=== PATIENT | female | born 1970 | race Caucasian/White ===

== ENCOUNTER 2018-09-28 20:55 | Inpatient (IN) ==
[2018-09-28] MEDS ORDERED: VANCOMYCIN 1 GM/NS 1 GM/250 ML IVPB IV ONE (21:41)
--- NOTE | 2018-09-28 21:48 | PROVIDER DOCUMENTATION ---
This chart was entered by Mona Jenkins Scribe, acting as scribe for Jasper Ruiz MD. HPI-Rash/Wound/ReCheck - General Chief Complaint: Abscess Stated Complaint: ABSCESS, FEVER Time Seen by Provider: 09/28/18 21:15 Source: patient Allergies/Adverse Reactions: Allergies Allergy/AdvReac Type Severity Reaction Status Date / Time adhesive Allergy RASH Verified 12/17/17 18:50 codeine Allergy Unknown Verified 12/17/17 18:50 latex Allergy Unknown Verified 12/17/17 18:50 Home Medications: Home Medication List Medication Instructions Recorded Confirmed Last Taken Type Cyclobenzaprine [Flexeril] 10 mg PO DAILY PRN 02/08/14 01/04/16 02/04/14 22:30 H istory Estradiol 2 mg PO HS 02/08/14 01/04/16 01/03/16 History Hydrocodone/Acetaminophen [[place] 1 each PO 4XDAY PRN PRN 02/08/14 01/04/16 01/04/16 17:00 History 10-325 Tablet] Metformin HCl [Glucophage] 500 mg PO BID 02/08/14 01/04/16 01/04/16 History Pravastatin Sodium 40 mg PO HS 02/08/14 01/05/16 02/07/14 22:30 History Bupropion HCl [Wellbutrin Xl] 150 mg PO QHS 01/04/16 01/05/16 01/03/16 History Clonazepam [Klonopin] 1 mg PO BID PRN 01/04/16 01/04/16 Unknown History Ezetimibe [Zetia] 10 mg PO DAILY 01/04/16 01/04/16 01/04/16 History Fluoxetine HCl [Prozac] 40 mg PO QHS 01/04/16 01/05/16 01/03/16 History Insulin Lispro [Humalog] 100 unit SQ DIRECTED PRN 01/04/16 01/04/16 Unknown History Linaclotide [Linzess] 290 mcg PO DIRECTED PRN 01/04/16 01/04/16 Unknown History Methocarbamol [Robaxin-750] 750 mg PO DAILY PRN 01/04/16 01/04/16 01/03/16 History Pregabalin [Lyrica] 50 mg PO PRN PRN 01/04/16 01/05/16 Unknown History Sumatriptan Succinate [Imitrex] 100 mg PO DIRECTED PRN 01/04/16 01/04/16 Unknown History Trazodone [Desyrel] 25 mg PO QHS 01/04/16 01/04/16 01/03/16 History Duloxetine HCl [Cymbalta] 30 mg PO QHS 01/05/16 01/05/16 Unknown History Metoclopramide [Reglan] 10 mg PO Q6HR PRN 01/05/16 01/05/16 Unknown History Albuterol Sulfate [Albuterol 8.5 gm IH Q4-6H PRN PRN #1 05/07/17 Unknown Rx Sulfate Hfa] hfa.[id number].[email or web address] Azithromycin [Zithromax Z-Michael] 250 mg PO DIRECTED #1 pkg 05/07/17 Unknown Rx Guaifenesin/D-Methorphan Hb/PE 1 ea PO Q4-6H PRN PRN #20 tab 05/07/17 Unknown Rx [Deconex Dmx Tablet] - History of Present Illness-Dermatology Nature of Presenting Problem: 47yof presents to ED cc abscess under left arm since Thursday. Pt reports she was seen at yesterday and they tried to aspirate the abscess and gave her Augmentin and Clindamyacin but she feels it is worse today. Pt also reports urinary symptoms. Pt is nontoxic in appearance. Pt has hx of Satge 3 renal failure with only 1 kidney. Location: reports: upper extremity (under left arm) Quality: reports: painful, stinging Severity: reports: moderate Onset/Duration: reports: 3 days ago Timing: reports: still present, changing over time Context/Associated Symptoms: reports: abscess, rash Identifiable cause?: No Locality of Occurance: Home Similar Symptoms Previously?: Yes Recently seen or treated by another doctor?: Yes (saw yesterday) Review of Systems - Adult - REVIEW OF SYSTEMS - ADULT Constitutional: reports: see HPI, fever. denies: chills, fatique Eyes: reports: no symptoms reported Ears, Nose, Mouth & Throat: reports: no symptoms reported Cardiovascular: reports: no symptoms reported Respiratory: reports: no symptoms reported Gastrointestinal: reports: no symptoms reported Genitourinary: reports: see HPI, dysuria, hesitency, urinary retention Musculoskeletal: reports: no symptoms reported Integumentary: reports: see HPI, skin sores/ulcer (under left arm) Neurological: reports: no symptoms reported Psychiatric: reports: no symptoms reported Endocrine: reports: no symptoms reported Hematologic/Lymphatic: reports: no symptoms reported Allergic/Immunologic: reports: no symptoms reported All Other Systems: Reviewed and Negative Past History - Adult - PAST MEDICAL HISTORY-ADULT Review of Records: reports: Old Records Reviewed, Nursing Assessment Review, Medications Reviewed, Social history reviewed & non-contributory. Major Childhood Illnesses: reports: denies history Cardiovascular: reports: hyperlipidemia Respiratory: reports: other (plerisy) Gastrointestinal: reports: denies history Obstetrical/Gynecological: reports: denies history Genitourinary: reports: denies history Musculoskeletal: reports: denies history Neurological: reports: denies history Endocrine/Immune: reports: denies history Other Conditions: reports: denies history - PRIOR SURGERIES/PROCEDURES Surgical/Procedure History: reports: hysterectomy, cholecystectomy - IMMUNIZATION STATUS Childhood Immunizations: See Nurse Assessment Flu Vaccine: See Nurse Assessment - FAMILY HISTORY Family History: reviewed, not pertinent - SOCIAL HISTORY Smoking: denies Physical Exam-General - PHYSICAL EXAM-ADULT Initial Vital Signs Reviewed: Yes - CONSTITUTIONAL General Appearance: appears well, alert, no apparent distress. negative: anxious, combative - EYES Eyes: PERRL/EOMI, pink conjunctivae. negative: meningismus, pale conjunctivae, photophobia - RESPIRATORY Respiratory: chest non-tender, lungs clear, normal breath sounds, no pleuratic c hest pain, no respiratory distress, no accessory muscle use. negative: crackles, rales, rhonchi, stridor, wheezing - CARDIOVASCULAR Cardiovascular: normal peripheral pulses, regular rate, rhythm, no edema, no gallop, no JVD, no murmur. negative: bradycardia, tachycardia - LYMPHATIC Lymphatic: no adenopathy. negative: enlargement, striations, streaking - SKIN Integumentary: erythema, swelling, tenderness (3cm diameter abscess inderated red/tender axilla left arm no drainage or flutance), warm. negative: cyanosis, diaphoresis, jaundice - PSYCHIATRIC Psych/Mental Status: normal mood/affect, normal thought content, normal thought process, oriented x 3. negative: disoriented x 3, anxious, disheveled, depressed affect Progress - PLAN OF CARE/RESULTS Progress/Plan/Lab Results: Vital Signs - 8 hr 07/09/19 20:59 Temperature 98.7 F Pulse Rate 110 H Respiratory Rate 18 Blood Pressure 122/78 O2 Sat by Pulse Oximetry 98 Laboratory Results - last 24 hr 09/28/18 09/28/18 09/28/18 21:51 21:59 21:59 WBC 14.07 H RBC 4.27 Hgb 13.9 Hct 38.8 MCV 90.9 MCH 32.6 H MCHC 35.8 RDW Std Deviation 12.6 Plt Count 198 MPV 11.2 H Immature Gran % (Auto) 0.2 Neut % (Auto) 82.2 H Lymph % (Auto) 11.6 L Simpson % (Auto) 4.3 Eos % (Auto) 1.6 Baso % (Auto) 0.1 Immature Gran # (Auto) 0.03 Neut # (Auto) 11.56 H Lymph # (Auto) 1.63 Simpson # (Auto) 0.61 H Eos # (Auto) 0.22 Baso # (Auto) 0.02 Sodium 137 Potassium 3.7 Chloride 101 Carbon Dioxide 23 L Anion Gap 13 BUN 13 Creatinine 1.1 H Estimated GFR/1.73 m2 53 BUN/Creatinine Ratio 12 Glucose 194 H Calculated Osmolality 279 Calcium 8.9 Plasma Lactate Urine Source CLEAN CATCH Urine Color YELLOW Urine Clarity CLEAR Urine pH 6.5 Ur Specific Foster 1.015 Urine Protein 1+(30 mg/dL) A Urine Ketones TRACE Urine Blood NEGATIVE Urine Nitrite NEGATIVE Urine Bilirubin NEGATIVE Urine Urobilinogen NORMAL Urine Microscopic RBC <10 Urine WBC NEGATIVE Urine Microscopic WBC <10 Ur Epithelial Cells <10 Urine Bacteria NEGATIVE Urine Glucose 2+(250 mg/dL) A 09/28/18 21:59 WBC RBC Hgb Hct MCV MCH MCHC RDW Std Deviation Plt Count MPV Immature Gran % (Auto) Neut % (Auto) Lymph % (Auto) Simpson % (Auto) Eos % (Auto) Baso % (Auto) Immature Gran # (Auto) Neut # (Auto) Lymph # (Auto) Simpson # (Auto) Eos # (Auto) Baso # (Auto) Sodium Potassium Chloride Carbon Dioxide Anion Gap BUN Creatinine Estimated GFR/1.73 m2 BUN/Creatinine Ratio Glucose Calculated Osmolality Calcium Plasma Lactate 1.2 Urine Source Urine Color Urine Clarity Urine pH Ur Specific Foster Urine Protein Urine Ketones Urine Blood Urine Nitrite Urine Bilirubin Urine Urobilinogen Urine Microscopic RBC Urine WBC Urine Microscopic WBC Ur Epithelial Cells Urine Bacteria Urine Glucose Orders Category Date Time Status Saline Loc DIRECTED Care 09/28/18 21:41 Active BLOOD CULTURE [BLDCUL] Stat Lab 09/28/18 21:39 Ordered BMP [BASIC METABOLIC PANEL] [CHEM] Stat Lab 09/28/18 21:59 Completed CBC WITH ELECTRONIC DIFF [HEME] Stat Lab 09/28/18 21:59 Completed LACTATE, PLASMA [CHEM] Stat Lab 09/28/18 21:[address] W/POSS RFLX CULT [URINALYSIS] Stat Lab 09/28/18 21:51 Completed 0.9% Sodium Chloride Inj [Ns] 1,000 ml Med 09/28/18 21:49 Discontinued IV 999 mls/hr Vancomycin 1 gm/Ns Med 09/28/18 21:41 Discontinued 1 gm in 250 ml IV NOW Result Diagrams: 09/28/18 21:59 09/28/18 21:59 - CONSULTS/PCP/HOSPITALIST Notification #1 *Consult/PCP/Hospitalist*: Dr. Cruz, hospitalist Time Discussed: 22:50 Consult Disposition: Admit Departure - Departure Date of Disposition Decision: 09/28/18 Time of Disposition Decision: 22:47 DIAGNOSIS: Failure of outpatient treatment Cellulitis Qualifiers: Site of cellulitis: unspecified site Qualified Code(s): L03.90 - Cellulitis, unspecified Disposition: ADMITTED INPATIENT 09 Certified Medical Emergency: Emergent Condition: Stable Additional Freetext Instructions: ED Follow Up Instructions: You have been treated by a care provider in the Emergency Department. These instructions are being provided to you so you can have an understanding of how to care for yourself upon discharge. Upon discharge from the Emergency [facility], you are responsible for making arrangements for follow-up care by a physician of your choice. Take all prescribed medications as directed. Return to the Emergency Department immediately for any new or worsening symptoms. You may call the Physician Referral phone number at [phone] to obtain a list of Physicians who are taking new patients. Referrals and Follow-Ups: Bib Car DO [Primary Care Provider] - - Critical Care Note This patient required my direct & personal management of CC.: No Attestation - Physician/ MARIJA Attestation Patient care was provided by Advanced Practice Provider:: No The physician spent face to face time with patient:: Yes Advanced Practice Provider documentation review:: Supervising physician onsite and consulted in the evaluation and care of this patient. The physician did have a face to face encounter with the patient. This chart was documented by the indicated scribe, (Mona Jenkins Scribe) and accurately reflects the services I performed and decisions made by me, Jasper Ruiz MD, as attested by the provider's signature.
[2018-09-28] MEDS ORDERED: NS 1,000 ML IV ONE ×2 (21:49→22:51)
[2018-09-28 22:15] LABS: HEMOGLOBIN 13.9 g/dL (12.0-16.0); RBC 4.27 XMIL (4.2-5.4); WBC 14.07 X1000 (4.8-10.8)
[2018-09-28 22:16] LABS: BASO# 0.02 X1000 (0.0-0.2); BASO% 0.1 % (0.0-0.8); EOS# 0.22 X1000 (0.0-0.7); EOS% 1.6 % (0.0-10.0); HEMATOCRIT 38.8 % (37.0-47.0); IMM GRAN# 0.03 X1000 (0.0-0.04); IMM GRAN% 0.2 % (0.0-0.5); LYMPH# 1.63 X1000 (1.2-3.4); LYMPH% 11.6 % (20.5-51.1); MCH 32.6 PG (27-31); MCHC 35.8 g/dL (33-37); MCV 90.9 FL (81-99); MONO# 0.61 X1000 (0.11-0.59); MONO% 4.3 % (1.7-9.3); MPV 11.2 FL (7.4-10.4); NEUT# 11.56 X1000 (1.4-6.5); NEUT% 82.2 % (42.2-75.2); PLT 198 X1000 (130-400); RDW 12.6 % (11.5-14.5)
[2018-09-28 22:26] LABS: BILIRUBIN URINE NEGATIVE (NEGATIVE); BLOOD URINE NEGATIVE (NEGATIVE); KETONE URINE TRACE mg/dL (NEGATIVE); LEUKOCYTES URINE NEGATIVE (NEGATIVE); NITRITE URINE NEGATIVE (NEGATIVE); PH URINE 6.5; PROTEIN URINE 1+(30 mg/dL) mg/dL (NEGATIVE); SP GRAVITY URINE 1.015; UROBILINOGEN URINE NORMAL
[2018-09-28 22:27] LABS: CLARITY CLEAR (CLEAR); COLOR YELLOW
[2018-09-28 22:30] LABS: URINE BACTERIA NEGATIVE /HFP; URINE EPITHELIAL CELLS <10 /HPF (<10); URINE RBC <10 /HPF (<10); URINE SOURCE CLEAN CATCH; URINE WBC <10 /HPF (<10)
[2018-09-28 22:33] LABS: CALCIUM 8.9 mg/dL (8.8-10.2); CREATININE 1.1 mg/dL (0.5-0.9); POTASSIUM 3.7 mmol/L (3.5-5.1)
[2018-09-28] MEDS ORDERED: VANCOMYCIN IV PER PHARMACY MISC SCH (23:00)
[2018-09-29 00:21] LABS: INR 0.94; PROTIME 13.1 Seconds (11.0-16.0)
[2018-09-29 00:22] LABS: PTT 35.3 Seconds (22.3-41.8)
[2018-09-29] MEDS: ZOFRAN IV PRN ×2 (00:55→05:20)
[2018-09-29] MEDS: MORPHINE IV PRN ×3 (00:55→05:20)
[2018-09-29] MEDS ORDERED: VANCOMYCIN 1 GM/NS 1 GM/250 ML IVPB IV ONE (02:00)
[2018-09-29 06:02] LABS: BASO# 0.01 X1000 (0.0-0.2); BASO% 0.1 % (0.0-0.8); EOS# 0.17 X1000 (0.0-0.7); EOS% 1.5 % (0.0-10.0); HEMATOCRIT 31.5 % (37.0-47.0); HEMOGLOBIN 11.1 g/dL (12.0-16.0); IMM GRAN# 0.03 X1000 (0.0-0.04); IMM GRAN% 0.3 % (0.0-0.5); LYMPH# 1.62 X1000 (1.2-3.4); LYMPH% 14.7 % (20.5-51.1); MCH 32.4 PG (27-31); MCHC 35.2 g/dL (33-37); MCV 91.8 FL (81-99); MONO# 0.66 X1000 (0.11-0.59); MPV 10.9 FL (7.4-10.4); NEUT# 8.54 X1000 (1.4-6.5); NEUT% 77.4 % (42.2-75.2); PLT 160 X1000 (130-400); RBC 3.43 XMIL (4.2-5.4); RDW 12.7 % (11.5-14.5); WBC 11.03 X1000 (4.8-10.8)
[2018-09-29] MEDS ORDERED: VENTOLIN HFA INH PRN (07:14)
[2018-09-29] MEDS ORDERED: ROBAXIN PO PRN (07:14)
[2018-09-29] MEDS ORDERED: TYLENOL PO PRN (07:17)
[2018-09-29] MEDS ORDERED: ZOFRAN IV PRN (07:17)
[2018-09-29] MEDS: ZOSYN 3.375 GM in NS 50 ML IV SCH ×3 (08:28→21:25)
[2018-09-29] MEDS: NORCO-10 PO PRN ×2 (08:28→16:53)
[2018-09-29] MEDS: NEURONTIN PO SCH ×3 (08:29→21:16)
[2018-09-29] MEDS: KLONOPIN PO SCH ×3 (08:29→21:16)
[2018-09-29] MEDS ORDERED: IMITREX PO PRN (09:00)
[2018-09-29] MEDS ORDERED: LINZESS PO PRN (09:00)
[2018-09-29] MEDS: HUMALOG (PARKWAY) SUBQ SCH ×3 (11:18→21:24)
--- NOTE | 2018-09-29 13:52 | HISTORY AND PHYSICAL ---
PRIMARY CARE PROVIDER: Dr. Bib Car. CHIEF COMPLAINT: Left underarm abscess and fever. HISTORY OF PRESENT ILLNESS: Ms. Keane is a 47-year-old female who carries a past medical history of type 2 diabetes, chronic kidney disease stage 3 with solitary kidney on the left. She had a right nephrectomy secondary to it being undersized and 6 lithotripsies and kidney stones. She reported to [facility] ED with complaints of an abscess and fever. She reported that Thursday she bought the wrong kind of deodorant, and went ahead and used it. Then, she proceeded to shave her underarm. She woke up on Thursday with a ping-pong ball sized abscess. On Thursday, it had continued to grow in size. She felt like it doubled. The redness continued to worsen. She went first thing Thursday morning after she could not get an appointment with her PCP to the urgent care. They did try to draw out some of the fluid, they tried to aspirate the abscess but per her report was unsuccessful. They gave her Augmentin and clindamycin. However, she continued to feel febrile, and felt like it continued to be growing so she came to the ED and was initiated on IV antibiotics. Blood cultures were taken. She did have a white count of 14. Throughout her admission, she has had one low-grade fever of 99. Her creatinine is at her baseline. Initial lactate was 1.2. She will be admitted for failure of outpatient treatment and left axillary cellulitis/abscess. REVIEW OF SYSTEMS: Twelve-point review of systems completely negative except for those mentioned in HPI. PAST MEDICAL HISTORY: 1. Type 2 diabetes. 2. Solitary kidney. 3. Chronic kidney disease stage 3. PAST SURGICAL HISTORY: 1. Hysterectomy. 2. Right nephrectomy. 3. Cholecystectomy. 4. Nose surgery. FAMILY HISTORY: Father with diabetes. Mother of lung cancer at the age of 61. SOCIAL HISTORY: Lives with family. No alcohol, tobacco, or illicit drug use. ALLERGIES: To adhesive tape. HOME MEDICATIONS: 1. Albuterol inhaler 8.5 g inhaled q.4 to q.6 hours p.r.n. wheezing. 2. Klonopin 1 mg p.o. t.i.d. 3. Flexeril 10 mg p.o. at bedtime. 4. Cymbalta 30 mg p.o. at bedtime. 5. Nexium 40 mg p.o. at bedtime. 6. Zetia 10 mg p.o. at bedtime. 7. Gabapentin 300 mg p.o. t.i.d. 8. [place] 10 one each p.o. 4 times a day p.r.n. pain. 9. Lamotrigine 50 mg p.o. at bedtime. 10. Linzess 290 mcg p.o. as directed p.r.n. constipation. 11. Lisinopril 2.5 mg p.o. at bedtime. 12. Glucophage 500 mg p.o. at bedtime. 13. Robaxin 750 mg p.o. daily. 14. Imitrex 100 mg p.o. as directed p.r.n. migraine. PHYSICAL EXAMINATION: VITAL SIGNS: Temperature 99.1 degrees, heart rate 96, respirations 20, blood pressure 99/65, and O2 is 98% on room air. GENERAL: Ms. Keane is a talkative 47-year-old female who is sitting up in bed in no acute distress. HEENT: Atraumatic, normocephalic. PERRL. NECK: Supple. Trachea midline. CARDIOVASCULAR: S1, S2 appreciated. No murmurs, gallops, or rubs noted. RESPIRATORY: Lung sounds clear bilaterally. GASTROINTESTINAL: Soft, nontender, nondistended. Positive bowel sounds 4 quads. EXTREMITIES: Lower extremities negative for edema. SKIN: Patient does have a reddened area underneath her left axilla. There is no oozing. Could not appreciate any abscess. It does appear that it has gone down from the previous marking site. She might have a small hematoma at the puncture site from Urgent Care. NEUROLOGIC: No focal deficits noted. DIAGNOSTIC DATA: None. LABORATORY DATA: Initial white count 14, this morning is down to 11. Hemoglobin and hematocrit 11 and 31, and platelet count 160,000. Sodium 137, potassium 3.7, BUN 13, creatinine 1.1, and blood glucose is 194 initially. Troponin less than 0.010. Plasma lactate 1.2, 2.1 and 0.6. ASSESSMENT AND PLAN: 1. Failure of outpatient treatment, left axillary cellulitis, probable abscess. The patient did attempt to have it aspirated at Urgent Care on Thursday, and was given p.o. antibiotics. She then came back for continued fever and increase in size. This morning it does appear to be withdrawn from the lines from the out markings. We will continue with IV antibiotics renally dosed. There was nothing to culture. We will await blood cultures. 2. Chronic kidney disease stage 3 with solitary kidney. Aware. She appears to be at her baseline. 3. Diabetes mellitus type 2. Continue with home medications and pattern blood sugars. 4. Further recommendation to follow physician evaluation, laboratory and diagnostic data. Dictated by MARIE Muhammad for Jayden Cruz MD cc: MD Bib Joy, AL[facility] HYDE MEDICAL CENTERMatthias
[2018-09-29] MEDS: LAMICTAL PO SCH (21:15)
[2018-09-29] MEDS: NEXIUM PO SCH (21:16)
[2018-09-29] MEDS: GLUCOPHAGE PO SCH (21:16)
[2018-09-29] MEDS: CYMBALTA PO SCH (21:17)
[2018-09-29] MEDS: ZETIA PO SCH (21:17)
[2018-09-29] MEDS: PRINIVIL PO SCH (21:17)
[2018-09-29] MEDS: FLEXERIL PO SCH (21:17)
[2018-09-30] MEDS: KLONOPIN PO SCH ×4 (00:59→21:19)
[2018-09-30] MEDS: ZOSYN 3.375 GM in NS 50 ML IV SCH ×4 (00:59→19:29)
[2018-09-30] MEDS: NEURONTIN PO SCH ×4 (00:59→21:20)
[2018-09-30] MEDS: VANCOMYCIN 1,700 MG in NS 250 ML IV SCH (01:03)
[2018-09-30] MEDS: NORCO-10 PO PRN ×2 (03:53→17:36)
--- NOTE | 2018-09-30 05:24 | HISTORY AND PHYSICAL ---
ADDENDUM: Patient seen and examined by myself. Full note dictated and discussed with nurse practitioner. Patient presented to the hospital after having taken antibiotics for 1 day at home. Notes that the swelling in her arm has continued to worsen. We will admit her to the hospital, change her antibiotic and we will follow. Currently, her left axillary area is swollen, erythematous and tender to the touch. cc: Jayden Cruz MD
[2018-09-30 06:05] LABS: BASO# 0.01 X1000 (0.0-0.2); BASO% 0.1 % (0.0-0.8); EOS# 0.18 X1000 (0.0-0.7); HEMOGLOBIN 10.8 g/dL (12.0-16.0); IMM GRAN# 0.01 X1000 (0.0-0.04); IMM GRAN% 0.1 % (0.0-0.5); LYMPH% 20.3 % (20.5-51.1); MCH 31.7 PG (27-31); MCHC 33.8 g/dL (33-37); MCV 93.8 FL (81-99); MONO# 0.57 X1000 (0.11-0.59); MONO% 6.4 % (1.7-9.3); MPV 11.2 FL (7.4-10.4); NEUT# 6.29 X1000 (1.4-6.5); NEUT% 71.1 % (42.2-75.2); PLT 188 X1000 (130-400); RBC 3.41 XMIL (4.2-5.4); RDW 12.5 % (11.5-14.5); WBC 8.86 X1000 (4.8-10.8)
[2018-09-30 06:21] LABS: CALCIUM 8.3 mg/dL (8.8-10.2); POTASSIUM 3.9 mmol/L (3.5-5.1)
[2018-09-30] MEDS: HUMALOG (PARKWAY) SUBQ SCH ×5 (08:06→21:26)
[2018-09-30] MEDS ORDERED: DIFLUCAN PO ONE (08:12)
[2018-09-30] MEDS: CYMBALTA PO SCH (21:19)
[2018-09-30] MEDS: FLEXERIL PO SCH (21:19)
[2018-09-30] MEDS: ZETIA PO SCH (21:19)
[2018-09-30] MEDS: NEXIUM PO SCH (21:19)
[2018-09-30] MEDS: LAMICTAL PO SCH (21:20)
[2018-09-30] MEDS: PRINIVIL PO SCH (21:20)
[2018-09-30] MEDS: GLUCOPHAGE PO SCH (21:20)
--- NOTE | 2018-09-30 21:29 | PROGRESS NOTE ---
DATE: 09/30/2018 SUBJECTIVE: Patient notes that her left arm is improving. She did have a low-grade fever earlier today. Denies any fevers or chills currently. OBJECTIVE: Vital Signs: T-max 102 degrees, pulse 104, respiratory rate 18, BP 112/65. HEENT: Normocephalic. Neck: Supple. CV: Regular rate. Chest: Clear. Abdomen: Soft. Extremities: Moves all extremities. Skin: Her left axillary area is improving. She has less erythema. She has no induration. shredding machine tender to palpation. ASSESSMENT: 1. Left axillary cellulitis, failed outpatient management. Continue antibiotics. 2. Chronic kidney disease. 3. Diabetes. PLAN: Blood pressures and blood sugars currently are stable. We will continue to follow. Continue antibiotics. Hopefully, if she remains afebrile today, she may be able to discharge home tomorrow. cc: Jayden Cruz MD
[2018-10-01] MEDS: NORCO-10 PO PRN ×4 (01:00→23:42)
[2018-10-01] MEDS: ZOSYN 3.375 GM in NS 50 ML IV SCH ×2 (01:00→18:00)
[2018-10-01] MEDS: KLONOPIN PO SCH ×3 (01:14→16:58)
[2018-10-01] MEDS: NEURONTIN PO SCH ×3 (01:15→16:59)
[2018-10-01] MEDS: VANCOMYCIN 1,700 MG in NS 250 ML IV SCH (02:45)
[2018-10-01 06:07] LABS: AGAP 9; BUN 9 mg/dL (8-22); CALCIUM 8.7 mg/dL (8.8-10.2); CHLORIDE 106 mmol/L (98-107); COSMO 279; CREATININE 0.9 mg/dL (0.5-0.9); ESTIMATED GFR > 60; GLUCOSE 143 mg/dL (70-104); POTASSIUM 4.2 mmol/L (3.5-5.1); SODIUM 139 mmol/L (136-145); TCO2 24 mmol/L (25-35)
[2018-10-01 06:14] LABS: HEMATOCRIT 32.7 % (37.0-47.0); HEMOGLOBIN 11.1 g/dL (12.0-16.0); MCH 31.6 PG (27-31); MCHC 33.9 g/dL (33-37); MCV 93.2 FL (81-99); MPV 10.6 FL (7.4-10.4); RBC 3.51 XMIL (4.2-5.4); RDW 12.6 % (11.5-14.5); WBC 6.69 X1000 (4.8-10.8)
[2018-10-01] MEDS: HUMALOG (PARKWAY) SUBQ SCH ×4 (06:45→21:25)
[2018-10-01] MEDS ORDERED: DOXYCYCLINE PO SCH (09:00)
[2018-10-01] MEDS ORDERED: VANCOMYCIN IV PER PHARMACY MISC SCH (17:15)
[2018-10-01] MEDS: ZETIA PO SCH (20:25)
[2018-10-01] MEDS: LAMICTAL PO SCH (20:25)
[2018-10-01] MEDS: GLUCOPHAGE PO SCH (20:26)
[2018-10-01] MEDS: PRINIVIL PO SCH (20:26)
[2018-10-01] MEDS: NEXIUM PO SCH (20:26)
[2018-10-01] MEDS: FLEXERIL PO SCH (20:26)
[2018-10-01] MEDS: CYMBALTA PO SCH (20:26)
[2018-10-02] MEDS: NEURONTIN PO SCH ×4 (00:40→20:55)
[2018-10-02] MEDS: ZOSYN 3.375 GM in NS 50 ML IV SCH ×5 (00:40→23:45)
[2018-10-02] MEDS: KLONOPIN PO SCH ×4 (00:40→20:54)
[2018-10-02] MEDS: VANCOMYCIN 1,700 MG in NS 250 ML IV SCH (01:26)
[2018-10-02] MEDS: HUMALOG (PARKWAY) SUBQ SCH ×4 (06:51→20:51)
[2018-10-02] MEDS: NORCO-10 PO PRN ×3 (07:17→20:52)
--- NOTE | 2018-10-02 09:44 | PROGRESS NOTE ---
DATE: 10/01/2018 SUBJECTIVE: This morning patient's left axillary area was looking better, less erythema, less pain. We stopped her IV vancomycin and Zosyn, placed her on p.o. doxycycline. Unfortunately, this afternoon she notes that the pain is much worse, the redness is worse. PHYSICAL EXAM: Temperature 97 degrees, pulse 84, respiratory rate 18, BP 111/73.General: Patient is in no current respiratory distress. HEENT: Normocephalic. Neck: Supple. Cardiovascular: Regular rate. No murmurs. Chest: Clear, nonlabored. Abdomen: Soft, nondistended, nontender. Extremities: Moves all extremities. Skin: Her axillary area this morning with much less erythema, less pain, less induration. This afternoon it has worsened. It appears to be a little more red, certainly much more tender. Neurologic: No focal neurological changes. ASSESSMENT: Cellulitis with undetermined bacterial origin currently. She was on vancomycin and Zosyn and it was healing. These were stopped. Her symptoms appear to have worsened; therefore, we will start back vancomycin and Zosyn and will delay her discharge. cc: Jayden Cruz MD
[2018-10-02] MEDS: CYMBALTA PO SCH (20:50)
[2018-10-02] MEDS: GLUCOPHAGE PO SCH (20:51)
[2018-10-02] MEDS: LAMICTAL PO SCH (20:51)
[2018-10-02] MEDS: FLEXERIL PO SCH (20:51)
[2018-10-02] MEDS: NEXIUM PO SCH (20:51)
[2018-10-02] MEDS: PRINIVIL PO SCH (20:52)
[2018-10-02] MEDS: ZETIA PO SCH (20:52)
--- NOTE | 2018-10-02 23:28 | PROGRESS NOTE ---
DATE: 10/02/2018 SUBJECTIVE: Patient notes that the pain and swelling of her left axillary area has actually improved. She does have a small indurated today that was not present previously. PHYSICAL EXAMINATION: Vital Signs: Temperature 98 degrees, pulse 92, respiratory rate 18, BP 107/67. General: Patient is awake, alert. She is in no distress. HEENT: Normocephalic. Neck: Supple. Cardiovascular: Regular rate. No murmurs. Chest: Clear and unlabored. Abdomen: Soft, nondistended, nontender. Extremities: Moves all extremities. Neurologic: No focal changes. She is awake, alert. Skin: The patient was alarmed yesterday that she felt as though the erythema in this area had worsened. I think this was more dependent edema as she had been up and about more. On today's exam, clinically continues to look better. She does have a small 3 x 2 cm indurated area that was not present previously. ASSESSMENT: 1. Cellulitis. Discussed with patient that the induration is actually common although it does not appear fluctuant enough to be drained at the present time. We will continue to follow. We had attempted to change her over to oral antibiotics yesterday. At this point, we will continue vancomycin and Zosyn through the weekend for the next 2 to 3 days and reevaluate each day. 2. Anxiety. 3. Hypertension. 4. Diabetes. 5. Chronic kidney disease stage 3 with a solitary kidney. cc: Jayden Cruz MD
[2018-10-03] MEDS: VANCOMYCIN 1,700 MG in NS 250 ML IV SCH (01:26)
[2018-10-03] MEDS: NORCO-10 PO PRN ×3 (03:54→20:27)
[2018-10-03] MEDS: HUMALOG (PARKWAY) SUBQ SCH ×4 (06:19→22:24)
[2018-10-03] MEDS: ZOSYN 3.375 GM in NS 50 ML IV SCH ×4 (06:32→23:53)
[2018-10-03] MEDS: GLUCOPHAGE PO SCH ×2 (09:58→18:51)
[2018-10-03] MEDS: KLONOPIN PO SCH ×5 (10:31→20:28)
[2018-10-03] MEDS: NEURONTIN PO SCH ×4 (10:31→20:27)
[2018-10-03] MEDS: CYMBALTA PO SCH (20:27)
[2018-10-03] MEDS: ZETIA PO SCH (20:27)
[2018-10-03] MEDS: NEXIUM PO SCH (20:27)
[2018-10-03] MEDS: LAMICTAL PO SCH (20:27)
[2018-10-03] MEDS: PRINIVIL PO SCH (20:27)
[2018-10-03] MEDS: FLEXERIL PO SCH (20:28)
--- NOTE | 2018-10-03 20:38 | PROGRESS NOTE ---
DATE: 10/03/2018 SUBJECTIVE: The patient notes that she is feeling better. Her lower for left-sided swelling is much improved. She denies any chest pains. Denies any fevers or chills. PHYSICAL EXAMINATION: Vital signs: Temperature 98, pulse 80, respiratory 18, BP 112/68. General: Patient is awake, alert. She is in no distress. HEENT: Normocephalic. Neck: Supple. Cardiovascular: Regular rate. No murmurs. Chest: Clear, nonlabored. Abdomen: Soft, nondistended. Extremities: Moves all extremities. Skin: Her left-sided cellulitic area is much improved, much less erythema. Even her indurated area today is smaller. PLAN: 1. Left axillary cellulitis. We will continue her on IV Zosyn and vancomycin today. Certainly, we will consider changing to antibiotics tomorrow. 2. Diabetes blood sugars are stable. 3. Chronic kidney disease, stable. cc: Jayden Cruz MD
[2018-10-03] MEDS ORDERED: VANCOMYCIN 2,000 MG in NS 500 ML IV SCH (21:00)
[2018-10-04] MEDS: ZOSYN 3.375 GM in NS 50 ML IV SCH (06:24)
[2018-10-04] MEDS: HUMALOG (PARKWAY) SUBQ SCH ×4 (06:25→21:36)
[2018-10-04] MEDS: NORCO-10 PO PRN ×3 (07:41→18:53)
[2018-10-04] MEDS: GLUCOPHAGE PO SCH ×2 (08:53→16:46)
[2018-10-04] MEDS: CLEOCIN PO SCH ×3 (08:53→21:26)
[2018-10-04] MEDS: OMNICEF PO SCH ×2 (08:54→21:26)
[2018-10-04] MEDS: KLONOPIN PO SCH ×3 (08:55→21:26)
[2018-10-04] MEDS: NEURONTIN PO SCH ×3 (08:55→21:26)
[2018-10-04] MEDS: NEXIUM PO SCH (21:25)
[2018-10-04] MEDS: CYMBALTA PO SCH (21:25)
[2018-10-04] MEDS: PRINIVIL PO SCH (21:26)
[2018-10-04] MEDS: ZETIA PO SCH (21:26)
[2018-10-04] MEDS: FLEXERIL PO SCH (21:26)
[2018-10-04] MEDS: LAMICTAL PO SCH (21:26)
--- NOTE | 2018-10-04 22:39 | PROGRESS NOTE ---
DATE: 10/04/2018 SUBJECTIVE: Patient notes that she is feeling better. She is having less pain, less swelling. Still has an indurated or hard area in her left axilla. PHYSICAL EXAM: Vital signs: Temperature 97, pulse 80, respiratory rate 18, BP 114/67. General: Patient is awake, alert. She is currently in no distress. She is pleasant to talk with. HEENT: Normocephalic, atraumatic. DELIA. Neck: Supple. Cardiovascular: Regular rate. Chest: Clear. Abdomen: Soft. Extremities: Moves all extremities. Neurologic: No focal changes. Skin: She has a small indurated area left axillary region that appears improved from initial, but is still not completely resolved. Erythema and edema and pain all improved. ASSESSMENT: 1. Cellulitis. 2. Diabetes. 3. Chronic pain. 4. Chronic anxiety. 5. Chronic depression. PLAN: Overall, patient has improved. She still has a small indurated area. The patient is wanting surgery evaluation for possible drainage. Therefore, we will consult surgery for their opinion. I am not sure that this is amenable to draining a the moment. We will change her over to oral antibiotics and hopefully discharge home over the next day or two. cc: Jayden Cruz MD
[2018-10-05] MEDS: HUMALOG (PARKWAY) SUBQ SCH ×4 (06:10→21:05)
[2018-10-05 06:39] LABS: HEMATOCRIT 38.6 % (37.0-47.0); HEMOGLOBIN 13.4 g/dL (12.0-16.0); MCH 31.8 PG (27-31); MCHC 34.7 g/dL (33-37); MCV 91.7 FL (81-99); MPV 9.7 FL (7.4-10.4); RBC 4.21 XMIL (4.2-5.4); RDW 12.4 % (11.5-14.5); WBC 6.45 X1000 (4.8-10.8)
[2018-10-05 06:47] LABS: CHLORIDE 102 mmol/L (98-107); POTASSIUM 4.4 mmol/L (3.5-5.1); SODIUM 143 mmol/L (136-145); TCO2 30 mmol/L (25-35)
[2018-10-05 06:48] LABS: AGAP 11; ALBUMIN 4.1 g/dL (3.5-5.0); ALKALINE PHOSPHATASE 86 U/L (32-104); BUN 9 mg/dL (8-22); CALCIUM 9.6 mg/dL (8.8-10.2); COSMO 285; CREATININE 0.9 mg/dL (0.5-0.9); ESTIMATED GFR > 60; GLUCOSE 131 mg/dL (70-104); GOT 50 U/L (10-30); GPT 45 U/L (10-36); TOTAL PROTEIN 7.3 g/dL (6.3-8.3)
[2018-10-05] MEDS: CLEOCIN PO SCH ×2 (08:17→16:14)
[2018-10-05] MEDS: GLUCOPHAGE PO SCH ×2 (08:17→16:15)
[2018-10-05] MEDS: OMNICEF PO SCH (08:17)
[2018-10-05] MEDS: NORCO-10 PO PRN ×3 (08:26→21:05)
[2018-10-05] MEDS: KLONOPIN PO SCH ×4 (08:26→21:05)
[2018-10-05] MEDS: NEURONTIN PO SCH ×4 (08:27→21:05)
[2018-10-05] MEDS ORDERED: XYLOCAINE-MPF 1% INJ ONE (11:41)
[2018-10-05] MEDS ORDERED: VANCOMYCIN IV PER PHARMACY MISC SCH (16:45)
[2018-10-05] MEDS: ZOSYN 3.375 GM in NS 50 ML IV SCH ×2 (17:18→22:06)
--- NOTE | 2018-10-05 17:34 | GENERAL SURGERY CONSULTATION ---
DATE: 10/05/2018 REASON FOR CONSULTATION: Left axillary abscess. HISTORY OF PRESENT ILLNESS: This is a 47-year-old female who presented to the emergency room last week with swelling and redness of her left axilla. She thought she had an infected hair follicle but it started getting much bigger and hurting more and so she came to the emergency room. She has been on antibiotics since then. A lot of the redness and swelling has improved but has not completely resolved. There is still an area of tenderness, redness and some fluctuance and I have been consulted for consideration of an incision and drainage. PAST MEDICAL HISTORY: Type 2 diabetes, chronic kidney disease with solitary kidney. PAST SURGICAL HISTORY: Hysterectomy, right nephrectomy, cholecystectomy, and nasal surgery. FAMILY HISTORY: Positive for lung cancer and diabetes. SOCIAL HISTORY: Negative for tobacco, alcohol or illicit drug use. ALLERGIES: Codeine, latex, adhesive tape. REVIEW OF SYSTEMS: Ten systems reviewed and negative except as noted above. CURRENT MEDICATIONS: [place], albuterol, Omnicef, clindamycin, Klonopin, Flexeril, Cymbalta, Nexium, Zetia, Neurontin, Humalog, Lamictal, Linzess, Prinivil, Glucophage, Robaxin, Imitrex. PHYSICAL EXAMINATION: Vital Signs: Temperature 97.6 degrees, pulse 82, respirations 16, blood pressure 122/74. General: She is a well-developed, well-nourished female in no distress who looks her stated age. HEENT: Normocephalic, atraumatic. Extraocular muscles intact. Pupils equal, round, reactive to light. Sclerae anicteric. Moist mucous membranes. Neck: Supple. No thyromegaly. Cardiovascular: Regular rate and rhythm. Respiratory: Bilateral equal breath sounds. No work of breathing. Gastrointestinal: Abdomen soft, nontender, nondistended. No organomegaly or mass. Extremities: No clubbing, cyanosis, or edema. Musculoskeletal: Moves all extremities equally and well. Skin: There is an area of redness, induration and central fluctuance in the left axilla consistent with abscess. LABORATORY: White cell count 6. Electrolytes reviewed and unremarkable. ASSESSMENT AND PLAN: A 47-year-old female with left axillary abscess that is persistent despite antibiotic therapy. We will plan incision and drainage at the bedside today. I discussed risks and benefits with her including ongoing infection, bleeding, and other imponderables. She understands and agrees to proceed. cc: Kervin Barnett MD
[2018-10-05] MEDS ORDERED: VANCOMYCIN 2,000 MG in NS 500 ML IV ONE (18:00)
--- NOTE | 2018-10-05 18:08 | PROGRESS NOTE ---
DATE: 10/05/2018 SUBJECTIVE: She had I and D today. She feels okay. No major complaints. Seems like her wound is getting better. It was under a dressing today. Dr. Barnett helped us out greatly by doing I and D at the bedside. OBJECTIVE: Vital Signs: Blood pressure 116/74, heart rate of 80, respiratory rate of 20, temperature 97.6 degrees, 99% on room air. Cardiovascular: Regular rate and rhythm. Pulmonary: Bilateral breath sounds clear to auscultation. Gastrointestinal: Abdomen soft, nontender, nondistended. Bowel sounds are positive. LABORATORY DATA: White count 6, hemoglobin and hematocrit 13 and 38, platelets of 330,000. AST and ALT of 50 and 45. ASSESSMENT/PLAN: 1. Cellulitis. We will continue the left arm, axilla, axillary area, possible hidradenitis. We will continue IV antibiotics. Follow up on wound culture. Hopefully, that gets situated and monitor. 2. Type 2 diabetes. Continue treatment and follow closely. 3. Anxiety and depression. Continue regular medications. DISPOSITION: Anticipate discharge hopefully in the next couple days pending the new culture. Hopefully, that will give us some information looking into the possibility of other things. Now, she reports she has renal failure, stage III, but she does not. She has had some issues in the past, but her creatinine is 0.9 currently. It was 1.4 before so, overall, patient is much improved. We will continue to follow. cc: Silvestre Garber MD
--- NOTE | 2018-10-05 20:50 | OPERATIVE NOTE ---
PROCEDURE DATE: 10/05/2018 PREOPERATIVE DIAGNOSIS: Left axilla abscess. POSTOPERATIVE DIAGNOSIS: Left axilla abscess. PROCEDURE: Incision and drainage of skin abscess. SURGEON: Kervin Barnett MD. ESTIMATED BLOOD LOSS: Scant. FINDINGS: Minimal pus. There was a sinus tract, however, in the midst of the inflamed skin and subcutaneous tissue. There appeared to be some fat necrosis in the subcutaneous tissues. TECHNIQUE: She was turned on her right side in her hospital bed. The skin was prepped with Betadine. 1% lidocaine was used to anesthetize the skin. A small incision was made with 11 blade. The wound was probed with a hemostat. A culture was taken. There was really minimal pus obtained but a deep tract was identified, and iodoform gauze was packed into the tract. A sterile gauze dressing was applied over this. There were no apparent complications. cc: Kervin Barnett MD
[2018-10-05] MEDS: PRINIVIL PO SCH (21:00)
[2018-10-05] MEDS: CYMBALTA PO SCH (21:04)
[2018-10-05] MEDS: NEXIUM PO SCH (21:04)
[2018-10-05] MEDS: ZETIA PO SCH (21:04)
[2018-10-05] MEDS: FLEXERIL PO SCH (21:04)
[2018-10-05] MEDS: LAMICTAL PO SCH (21:05)
[2018-10-06] MEDS: ZOSYN 3.375 GM in NS 50 ML IV SCH ×4 (04:07→22:50)
[2018-10-06] MEDS: NORCO-10 PO PRN ×2 (05:44→12:11)
[2018-10-06] MEDS: HUMALOG (PARKWAY) SUBQ SCH ×4 (06:05→21:06)
[2018-10-06 07:15] LABS: HEMATOCRIT 36.7 % (37.0-47.0); HEMOGLOBIN 12.8 g/dL (12.0-16.0); LYMPH% 31.1 % (20.5-51.1); MCHC 34.9 g/dL (33-37); MCV 91.8 FL (81-99); MONO% 6.1 % (1.7-9.3); MPV 9.9 FL (7.4-10.4); NEUT% 55.9 % (42.2-75.2); PLT 309 X1000 (130-400); RDW 12.5 % (11.5-14.5)
[2018-10-06 07:16] LABS: BASO# 0.02 X1000 (0.0-0.2); BASO% 0.3 % (0.0-0.8); EOS# 0.29 X1000 (0.0-0.7); IMM GRAN# 0.19 X1000 (0.0-0.04); IMM GRAN% 2.6 % (0.0-0.5); LYMPH# 2.24 X1000 (1.2-3.4); MONO# 0.44 X1000 (0.11-0.59); NEUT# 4.02 X1000 (1.4-6.5)
[2018-10-06 07:38] LABS: CALCIUM 9.2 mg/dL (8.8-10.2); POTASSIUM 3.7 mmol/L (3.5-5.1)
[2018-10-06] MEDS: GLUCOPHAGE PO SCH ×2 (09:22→17:02)
[2018-10-06] MEDS: KLONOPIN PO SCH ×3 (09:22→21:06)
[2018-10-06] MEDS: NEURONTIN PO SCH ×3 (09:23→21:06)
[2018-10-06] MEDS: MORPHINE IV PRN ×5 (09:40→23:33)
[2018-10-06] MEDS: VANCOMYCIN 1,700 MG in NS 250 ML IV SCH (12:12)
--- NOTE | 2018-10-06 18:22 | PROGRESS NOTE ---
DATE: 10/06/2018 SUBJECTIVE: She is better. She still has some soreness in her arm, but looks okay. OBJECTIVE: Blood pressure 117/78, heart rate 87, respiratory rate 18, temperature 97.6 degrees, 96% on room air.Cardiovascular: Regular rate and rhythm. Pulmonary: Bilateral breath sounds. Clear to auscultation. Gastrointestinal: Soft, nontender, nondistended. Bowel sounds are positive. LABORATORY DATA: White count is 7. ASSESSMENT/PLAN: 1. Left axillary cellulitis. She is on IV antibiotics. All cultures are negative and she seems to be doing better. Her wound culture though, was not obtained until after several days of antibiotics, so it may be fairly low yield, but she is responding to her current antibiotics, which are vancomycin and Zosyn. I think she could probably be discharged on Levaquin and doxycycline, something like that to cover, but we are going to set her up actually for an outpatient dose of Orbactiv. Thankfully to Pharmacy and Case Management, they have been able to clear that and we have set that up. 2. Type 2 diabetes. Continue treatment. 3. Disposition. Pending clinical status. 4. Chronic renal failure. At this point, she does not have that. Her GFR, she may have stage 1 at most. So, we will continue to follow. cc: Silvestre Garber MD
[2018-10-06] MEDS: FLEXERIL PO SCH (21:05)
[2018-10-06] MEDS: NEXIUM PO SCH (21:05)
[2018-10-06] MEDS: ZETIA PO SCH (21:05)
[2018-10-06] MEDS: CYMBALTA PO SCH (21:05)
[2018-10-06] MEDS: LAMICTAL PO SCH (21:05)
[2018-10-06] MEDS: PRINIVIL PO SCH (21:06)
[2018-10-07] MEDS: MORPHINE IV PRN ×4 (04:24→11:29)
[2018-10-07] MEDS: ZOSYN 3.375 GM in NS 50 ML IV SCH ×2 (04:24→11:29)
[2018-10-07] MEDS: VANCOMYCIN 1,700 MG in NS 250 ML IV SCH (05:02)
[2018-10-07] MEDS: HUMALOG (PARKWAY) SUBQ SCH ×2 (06:06→11:10)
[2018-10-07] MEDS: NEURONTIN PO SCH ×2 (08:49→14:26)
[2018-10-07] MEDS: KLONOPIN PO SCH ×2 (08:49→14:26)
[2018-10-07] MEDS: GLUCOPHAGE PO SCH (08:49)
[2018-10-07 13:18] VITALS: BP 92/63
[2018-10-07] MEDS: NORCO-10 PO PRN (14:14)
--- NOTE | 2018-10-08 10:00 | DISCHARGE SUMMARY ---
ADMISSION DATE: 09/28/2018 DISCHARGE DATE: 10/07/2018 SUBJECTIVE: The patient has no major complaints. DISCHARGE DIAGNOSES: 1. Axillary cellulitis of the left. 2. Type 2 diabetic. HISTORY: She was placed on antibiotics and slowly clinically improved. Dr. Barnett was consulted on the because she felt that there was an abscess there. She did have a bedside I and D with not much pus removed, but she did grow out gram-positive cocci. Culture is still pending. Clinically, she has improved with IV antibiotics which has been vancomycin and Zosyn. Her white count has gone from 14,000 to 7000. Her axillary area shows some erythema around the site of I and D. Packing is essentially unchanged, but we are going to plan to discharge her. She has gotten a dose of vancomycin today, and she will come in for an outpatient dose of Orbactiv. Follow up with Dr. Barnett in about a week. Return for worsening pain and swelling. She was given instructions on changing her packing per Dr. Barnett's recommendations. DISCHARGE MEDICATIONS: 1. Cymbalta 30. 2. Flexeril 10. 3. Metformin 500 at bedtime. 4. Lamictal 50 at bedtime. 5. Lisinopril 2.5 at bedtime. 6. Nexium 40 daily. 7. Zetia 10 daily. 8. Gabapentin 300 t.i.d. 9. Sumatriptan 100 as needed. 10. Klonopin 1 t.i.d. 11. Linzess 290 daily. 12. Sumner p.r.n. 13. Robaxin 750 daily. 14. Albuterol p.r.n. DISCHARGE CONDITION: Stable. She should follow up with Dr. Bib Car within 1 to 2 weeks as well. TIME SPENT: 32 minute discharge. cc: MD Kervin Beard MD Thomas E. Lockard, DO HUED
== END 2018-10-07 14:45 | disposition home or self-care (01) | DRG 581 ==
LOC: P.MEDSURG 20:55 → P.ED 20:55 → OBSVTOIN 23:31 → SUATTDRO 23:31
PROVIDERS: ATTEND Internal Medicine
CPT/HCPCS: 36415; 80048; 80053; 80202; 81001; 82550; 82948; 83605; 84484; 85025; 85027; 85610; 85730; 87040; 87070; 87077; 87186; 94761; 96365; 96366; 99284; A9270; J1815; J2270; J2405; J2543; J3370; J7030; J7040; J7050; XXXXX